=== PATIENT | male | born 1960 | race Caucasian/White ===

== ENCOUNTER 2023-01-30 09:03 | Emergency (ER) | payer BC, SELFPAY ==
--- NOTE | 2023-01-30 09:11 | ECG_ITS ---
Test Reason : HEART PALPITATIONS Blood Pressure : / mmHG Vent. Rate : 089 BPM Atrial Rate : 089 BPM P-R Int : 200 ms QRS Dur : 168 ms QT Int : 412 ms P-R-T Axes : 060 -55 027 degrees QTc Int : 501 ms Normal sinus rhythm Left axis deviation Right bundle branch block Abnormal ECG No previous ECGs available Referred By: Generic ED Physician Electronically Signed By:FATIMAH RONQUILLO
[2023-01-30 09:15] VITALS: BP 180/89; PULSE 85; RESP 18; TEMP 36.6; O2SAT 98; BMI 1220.1
--- NOTE | 2023-01-30 09:30 | ED.CHESTPAIN ---
HPI - Chest Pain General Chief Complaint: Chest Pain Stated Complaint: HBP/ heart fluttery/ no eating Time Seen by Provider: 01/30/23 09:15 Source: patient Mode of arrival: ambulatory Limitations: no limitations History of Present Illness HPI narrative: Recent had a physical and was told that his pressure is a little high. Not started on medication. Patient feeling tired. Concerned that he had a palpitation. Onset (ago): day(s) Timing of current episode: episodic Related Data Allergies Allergy/AdvReac Type Severity Reaction Status Date / Time No Known Allergies Allergy Verified 01/30/23 09:14 Review of Systems Review of Systems: Yes all other systems are reviewed and are negative Neurologic: Denies Sensory deficit (Neuro) [facility] Social History Social History Smoked in Last 30 Days: No Use of substances other than those prescribed or required for medical reasons: No Advance Directives: Yes Advance Directives Information Provided: No Advance Directives on File: No Physical Exam Vital Signs: Vital Signs: Last Vital Signs Temp 97.9 F 01/30/23 09:15 Pulse 85 01/30/23 09:15 Resp 18 01/30/23 09:15 BP 180/89 H 01/30/23 09:15 Pulse Ox 98 01/30/23 09:15 O2 Del Method Room Air 01/30/23 09:15 BMI result Body Mass Index 1220.1 Const: General: healthy appearing Nutritional Appearance: average body habitus Orientation/consciousness: oriented to person and patient oriented x3 Limitations: no limitations HEENT: Head: Yes normal to inspection Ears: external ears normal General nose exam: Normal external nose present Mouth: Normal oral and palatal mucosa present and oropharynx normal Throat: Yes posterior oropharynx normal Eyes: General: appearance normal, both eyes and all related structures Neck: Other: supple Neck: Yes normal visual inspection Chest: Chest palpation & inspection: normal inspection of the chest Resp: Auscultation: clear to auscultation bilaterally Cardio: Jugular venous distension: no JVD Rate: regular rate Rhythm: regular rhythm Heart sounds: S1 normal heart sound present and S2 normal heart sound present GI: Inspection: Yes normal to inspection Palpation (GI): Soft to palpation, nontender and No hepatosplenomegaly present Auscultation: normal bowel sounds : General: Yes no CVA tenderness Back/Spine/Pelvis: Back: no CVA tenderness Skin: General skin exam: no rashes or lesions noted Neuro: General: oriented to person and patient oriented x3 Cranial nerves: Yes CN's II-XII intact bilaterally Motor exam (neuro): 5/5 motor strength present throughout Sensory Exam: No Sensory deficit (Neuro) Extrem: General: Yes normal to inspection Psych: Appearance: grossly normal Course Reevaluation(s) Reevaluation #1: Patient with no chest pain, noticed intermittent palpitations, EKG normal troponin normal, not likely cardiac ischemia will have the patient follow up with PMD Time: 10:37 Medical Decision Making Differential Diagnosis Differential Diagnoses: The differential diagnosis associated with the presentation includes (cardiac ischemia, arrhythmia, HTN, GERD were all considered) Admission/Observation Consideration of admission/observation: Escalation of care including admission/observation considered (upon arrival patient was considered for admission) Lab Data MDM Lab Attestation statement: I reviewed the patient's lab results. (negative troponin) 01/30/23 09:48 01/30/23 09:48 Labs: Lab Results 01/30/23 01/30/23 01/30/23 Range/Units 09:48 09:48 09:48 WBC 8.2 (4.8-10.8) X10*3/uL RBC 4.32 L (4.60-5.80) X10*6/uL Hgb 14.8 (14.0-18.0) g/dl Hct 41.0 L (42.0-52.0) % MCV 94.9 (80.0-98.0) fL MCH 34.3 H (27.0-33.0) pg MCHC 36.1 H (31.0-36.0) g/dl RDW 12.2 (11.0-16.0) % Plt Count 244 (160-400) X10*3/uL MPV 9.8 (9.4-12.4) fL Immature Gran % (Auto) 0.4 (0.0-0.4) % Neut % (Auto) 80.7 H (45-73) % Lymph % (Auto) 11.5 L (20-40) % [place] % (Auto) 6.8 (2-11) % Eos % (Auto) 0.2 (0-4) % Baso % (Auto) 0.4 (0-2) % Lymph # (Auto) 1.0 L (1.2-4.9) X10*3/uL [place] # (Auto) 0.6 (0.1-1.2) X10*3/uL Eos # (Auto) 0.0 (0.0-0.4) X10*3/uL Baso # (Auto) 0.0 (0.0-0.2) X10*3/uL Abs Immat Gran (auto) 0.03 (0.00-0.03) X10*3/uL Absolute Neuts (auto) 6.6 (2.0-8.3) x10*3/uL Absolute Nucleated RBC 0.000 (0.0-0.012) X10*3/uL Nucleated RBC % (auto) 0.0 (0.0-0.2) /100WBC Sodium 135 (135-145) mmol/L Potassium 4.3 (3.3-5.1) mmol/L Chloride 106 (96-108) mmol/L Carbon Dioxide 23 (22-29) mmol/L Anion Gap 10 L (12-20) BUN 13 (9-16) mg/dL Creatinine 1.01 (0.5-1.4) mg/dL Estim Creat Clear Calc 0.5 Estimated GFR > 60 Random Glucose 109 (60-115) mg/dL Calcium 9.5 (8.4-10.2) mg/dL Troponin I High Sens < 2.7 (<3.5-35.0) ng/L Independent Interpretation I performed an independent interpretation of an: EKG (sinus 90, RBBB, no st or twave changes) Independent Historian Clinical information obtained from an independent historian. History obtained from or confirmed by: Spouse Discharge Plan Discharge Clinical Impression: Heart palpitations Patient Disposition: Home, Self-Care Instructions: Heart Palpitations (ED) Referrals: Hodan Perrin MD [Primary Care Provider] - 5 days
[2023-01-30 09:52] LABS: MANUAL DIFF FLAG NO
[2023-01-30 10:01] LABS: Basophils Percent Auto 0.4 % (0-2); Eosinophils Percent Auto 0.2 % (0-4); Hemoglobin 14.8 g/dl (14.0-18.0); Imm Gran Abs Auto 0.03 X10*3/uL (0.00-0.03); Imm Gran Pct Auto 0.4 % (0.0-0.4); Lymphocytes Percent Auto 11.5 % (20-40); Mean Corpuscular HGB Conc 36.1 g/dl (31.0-36.0); Mean Corpuscular Hemoglobin 34.3 pg (27.0-33.0); Mean Corpuscular Volume 94.9 fL (80.0-98.0); Mean Platelet Volume 9.8 fL (9.4-12.4); Monocytes Absolute Auto 0.6 X10*3/uL (0.1-1.2); Monocytes Percent Auto 6.8 % (2-11); Neutrophils Absolute Auto 6.6 x10*3/uL (2.0-8.3); Neutrophils Percent Auto 80.7 % (45-73); Platelet Count 244 X10*3/uL (160-400); Red Blood Count 4.32 X10*6/uL (4.60-5.80); Red Cell Distribution Width 12.2 % (11.0-16.0); White Blood Count 8.2 X10*3/uL (4.8-10.8)
--- NOTE | 2023-01-30 10:02 | PC.NURSE ---
resting comfortably in room. normal sinus rhythm on monitor. iv established, labs drawn and sent. no signs of distress, vital signs stable. call lopez within reach
[2023-01-30 10:05] LABS: Anion Gap 10 (12-20); Blood Urea Nitrogen 13 mg/dL (9-16); Calcium 9.5 mg/dL (8.4-10.2); Carbon Dioxide 23 mmol/L (22-29); Chloride 106 mmol/L (96-108); Creatinine Clr Calc Pharmacy 0.5; Estimated Glomerular Filt Rate > 60; Glucose Random 109 mg/dL (60-115); Potassium 4.3 mmol/L (3.3-5.1); Sodium 135 mmol/L (135-145)
[2023-01-30 10:20] LABS: Troponin-I High Sensitivity < 2.7 ng/L (<3.5-35.0)
[2023-01-30 10:54] VITALS: BP 154/93; PULSE 70; RESP 16; TEMP 36.7; O2SAT 98
== END 2023-01-30 10:56 | disposition home or self-care (01) ==
PROVIDERS: Emergency Provider Emergency Medicine; PCP Internal Medicine
DX: R00.2 Palpitations (principal); Z79.899 Other long term (current) drug therapy
CPT/HCPCS: 36415; 80048; 84484; 85025; 93005; 99284; 99285

== ENCOUNTER 2024-05-24 21:30 | Emergency (ER) | payer OTHER, SELFPAY ==
[2024-05-24] VITALS (8 sets, daily range): BP systolic 110–120; BP diastolic 60–71; PULSE 80–92; RESP 15–16; TEMP 36.7–37.1; O2SAT 96–99; BMI 28.9
--- NOTE | ~2024-05-24 | XR_ITS ---
EXAMINATION: XR CHEST CLINICAL INFORMATION: syncope COMPARISON: None available. TECHNIQUE: Frontal view of the chest was obtained. FINDINGS: No significant abnormality is noted involving the heart, lungs, mediastinum, bony thorax or soft tissues. XR/XR chest 1V IMPRESSION: Unremarkable examination. Electronically signed by: Edward Banuelos MD 05/24/2024 11:19 PM [facility]
--- NOTE | ~2024-05-24 | CT_ITS ---
EXAMINATION: CT HEAD WITHOUT CONTRAST CLINICAL INFORMATION: Syncope. Fall. COMPARISON: None available. TECHNIQUE: Contiguous axial imaging was performed from the skull base to vertex without intravenous administration of contrast. This CT examination was performed using dose optimization techniques as appropriate, variously including the following: *Automated exposure control *Adjustment of mA and/or kV according to patient size (this includes techniques or standardized protocols for targeted exams where dose is matched to indication/reason for exam; i.e. extremities or head) *Use of iterative reconstruction technique DLP: 636 mGy-cm FINDINGS: The lateral, third and fourth ventricles are normally outlined. The cortical sulci and basal cisterns are normally outlined as well. There is no acute territorial defect, hemorrhage or midline shift. The extra-axial spaces are unremarkable. Calvarium/scalp: Intact. Maxillofacial sinuses and mastoids: Clear as visualized. CT/CT head/brain wo IV con IMPRESSION: No acute intracranial pathology. Electronically signed by: Edawrd Banuelos MD 05/24/2024 11:06 PM [facility]
--- NOTE | 2024-05-24 21:52 | ECG_ITS ---
Test Reason : SYNCOPE Blood Pressure : / mmHG Vent. Rate : 081 BPM Atrial Rate : 081 BPM P-R Int : 226 ms QRS Dur : 166 ms QT Int : 428 ms P-R-T Axes : 055 -37 041 degrees QTc Int : 497 ms Sinus rhythm with 1st degree A-V block Left axis deviation Right bundle branch block Abnormal ECG When compared with ECG of 30-JAN-2023 09:12, No significant change was found Referred By: Generic ED Physician Electronically Signed By:PETER ALEJANDRA MD
--- NOTE | 2024-05-24 22:11 | ED_ITS ---
HPI - Syncope General Chief Complaint: Syncope Stated Complaint: light headed Time Seen by Provider: 05/24/24 21:44 Source: patient, family (Spouse) and EMS Mode of arrival: EMS Limitations: no limitations History of Present Illness ED Provider: DR. Acosta HPI narrative: 63-year-old male came in by ambulance for evaluation after had 2 syncopal episode witnessed by his . Patient was going to the bathroom getting ready to bed when heard a thud found the patient on the ground passing out not responding with the help of the patient was seated on the toilet when he passed out for few seconds again witnessed by the normal patient was clammy, diaphoretic. Each episode of syncope lasted for few seconds as per , patient and for sick a day before the event with stomach virus causing nausea, vomiting, and diarrhea. Patient admitted that he was not drinking enough fluids all day yesterday. Related Data Allergies Allergy/AdvReac Type Severity Reaction Status Date / Time No Known Allergies Allergy Verified 05/24/24 21:49 Review of Systems 2 Review of Systems: All other systems are reviewed and are negative Constitutional: Reports as per HPI and Reports no additional constitutional complaints Eyes: Reports as per HPI and Reports no additional eye complaints Reports system reviewed and no additional complaints, except as documented Cardiovascular: Reports as per HPI and Reports no additional cardiovascular complaints Respiratory: Reports as per HPI and Reports no additional respiratory complaints Gastrointestinal: Reports as per HPI and Reports no additional gastrointestinal complaints Genitourinary: Reports no additional female genitourinary complaints Musculoskeletal: Reports no additional musculoskeletal complaints Skin/Breast: Reports system reviewed and no additional complaints, except as docu Psychiatric: Reports no additional psychiatric complaints Endocrine: Reports no additional endocrine complaints Hematologic/Lymphatic: Reports no additional hematologic/lymphatic complaints Allergic/Immunologic: Reports no additional allergic/immunologic complaints Reports system reviewed and no additional complaints, except as documented and Reports Abnormal speech present [facility] Social History Social History Smoked in Last 30 Days: No Use of substances other than those prescribed or required for medical reasons: No Any prior treatment program specific to substance use: No Advance Directives: No Advance Directives Information Provided: No Do you have a plan to hurt others: No Plan Physical Exam 2 Vital Signs: Vital Signs: Last Vital Signs Temp 98.3 F 05/25/24 06:00 Pulse 75 05/25/24 06:00 Resp 14 05/25/24 06:00 BP 130/73 05/25/24 06:00 Pulse Ox 100 05/25/24 06:00 O2 Del Method Room Air 05/25/24 06:00 BMI result Body Mass Index 28.9 Vital signs have been reviewed and appear to be correct. Blood pressure elevated. Heart rate normal. Respiratory rate normal. Temperature normal. Oxygen saturation normal. Appearance: Alert. Oriented X3. No acute distress. Head: Normal external exam. Normocephalic. Atraumatic. No Fung signs noted. No raccoon eyes noted Eyes: PERRLA. EOMI. Conjunctiva and sclera normal. Eyelids normal. ENT: TM's Normal. Pharynx normal. Uvula midline. Moist mucous membranes. No trismus noted. No drooling noted. No muffled voice noted. Neck: Normal inspection. Neck supple. FROM. No adenopathy. Thyroid Normal. No meningeal signs. No neck mass noted. CVS: Normal heart rate and rhythm. Heart sound normal. No murmurs noted. Pulses normal throughout. Respiratory: No respiratory distress. Painless inspiration. Breath sounds normal. No wheezes/rales/rhonchi noted. Chest nontender. No accessory muscle usage noted or decreased air movement noted. Abdomen: Soft and nontender. Bowel sounds normal in all 4 quadrants. No distention noted. No organomegaly noted. No visible injury noted. Back: No CVA tenderness. Full range of motion noted. Skin: Skin warm and dry. Normal skin color. Normal skin turgor. No rashes/lesions/lacerations noted. Extremities: No lower extremity edema. Extremities exhibit normal range of motion. Extremities nontender. Neuro: Oriented X 3. Cranial nerve exam: II-XII are grossly intact No motor deficit. No sensory deficit. Reflexes normal. Course Reevaluation(s) Reevaluation #1: Hypovolemia and orthostatic syncope secondary to acute gastroenteritis with dehydration. Patient received IV hydration in the emergency department and subjectively patient feels much better able to ambulate unsteady gait in the emergency department no more nausea or vomiting or diarrhea. Time: 06:37 Medications Administered Discontinued Medications Generic Name Dose Route Start Last Admin Trade Name Freq PRN Reason Stop Dose Admin Sodium Chloride 1,000 mls @ 999 mls/hr 05/24/24 22:18 05/25/24 02:05 Ns IV 05/24/24 23:18 Infused .Q1H1M ONE Infusion Sodium Chloride 1,000 mls @ 999 mls/hr 05/25/24 00:05 05/25/24 05:16 Ns IV 05/25/24 01:05 Infused .Q1H1M ONE Infusion Medical Decision Making Differential Diagnosis Differential Diagnoses: The differential diagnosis associated with the presentation includes (ACS, dysrhythmia, dehydration, hypovolemia, electrolyte derangement, severe anemia.) Admission/Observation Consideration of admission/observation: Escalation of care including admission/observation considered Lab Data MDM Lab Attestation statement: I reviewed the patient's lab results. 05/24/24 22:34 05/24/24 22:34 Labs: Lab Results 05/24/24 05/25/24 Range/Units 22:34 02:06 WBC 6.5 (4.8-10.8) X10*3/uL RBC 3.89 L (4.60-5.80) X10*6/uL Hgb 13.2 L (14.0-18.0) g/dl Hct 37.1 L (42.0-52.0) % MCV 95.4 (80.0-98.0) fL MCH 33.9 H (27.0-33.0) pg MCHC 35.6 (31.0-36.0) g/dl RDW 12.3 (11.0-16.0) % Plt Count 206 (160-400) X10*3/uL MPV 9.0 L (9.4-12.4) fL Immature Gran % (Auto) 0.2 (0.0-0.4) % Neut % (Auto) 81.4 H (45-73) % Lymph % (Auto) 7.6 L (20-40) % [place] % (Auto) 10.2 (2-11) % Eos % (Auto) 0.3 (0-4) % Baso % (Auto) 0.3 (0-2) % Lymph # (Auto) 0.5 L (1.2-4.9) X10*3/uL [place] # (Auto) 0.7 (0.1-1.2) X10*3/uL Eos # (Auto) 0.0 (0.0-0.4) X10*3/uL Baso # (Auto) 0.0 (0.0-0.2) X10*3/uL Abs Immat Gran (auto) 0.01 (0.00-0.03) X10*3/uL Absolute Neuts (auto) 5.3 (2.0-8.3) x10*3/uL Absolute Nucleated RBC 0.000 (0.0-0.012) X10*3/uL Nucleated RBC % (auto) 0.0 (0.0-0.2) /100WBC Sodium 135 (135-145) mmol/L Potassium 4.2 (3.3-5.1) mmol/L Chloride 106 (96-108) mmol/L Carbon Dioxide 24 (22-29) mmol/L Anion Gap 9 L (12-20) BUN 18 H (9-16) mg/dL Creatinine 0.85 (0.5-1.4) mg/dL Estim Creat Clear Calc 96.7 Estimated GFR > 60 Random Glucose 122 H (60-115) mg/dL Calcium 8.4 D (8.4-10.2) mg/dL Troponin I High Sens < 2.7 (<3.5-35.0) ng/L Urine Color Dark Yellow Urine Appearance Clear Urine pH 6.0 (5.0-9.0) Ur Specific [place] >= 1.030 H (1.005-1.025) Urine Protein 30 (1+) H (Neg-Trace) mg/dL Urine Glucose (UA) Negative (Negative) mg/dL Urine Ketones 15 (Negative) mg/dL Urine Blood Negative (Negative) Urine Nitrite Negative (Negative) Ur Leukocyte Esterase Negative (Negative) Urine RBC 0-2 (0-2) /HPF Urine WBC 0-5 (0-5) /HPF Ur Squamous Epith Cells 0-2 (0-2) /HPF Urine Bacteria None Seen (None Seen) Hyaline Casts 0-2 (0-2) /LPF Independent Interpretation I performed an independent interpretation of an: Plain X-Ray (Chest: No acute intrathoracic pathology.) and CT Scan (Head: No acute intracranial pathology.) Radiology Impression Discussion of test interpretation with radiology: I have reviewed the radiologist's reading. Discharge Plan Discharge Clinical Impression: Syncope due to orthostatic hypotension Patient Disposition: Home, Self-Care Instructions: Syncope (ED) Referrals: Hodan Perrin MD [Primary Care Provider] - Print Language: Uzbek
[2024-05-24] MEDS: 0.9 % Sodium Chloride 1,000 ML 999 ML IV (22:37)
[2024-05-24 22:38] LABS: MANUAL DIFF FLAG NO
[2024-05-24 22:40] LABS: Basophils Percent Auto 0.3 % (0-2); Eosinophils Percent Auto 0.3 % (0-4); Hematocrit 37.1 % (42.0-52.0); Hemoglobin 13.2 g/dl (14.0-18.0); Imm Gran Abs Auto 0.01 X10*3/uL (0.00-0.03); Imm Gran Pct Auto 0.2 % (0.0-0.4); Lymphocytes Absolute Auto 0.5 X10*3/uL (1.2-4.9); Lymphocytes Percent Auto 7.6 % (20-40); Mean Corpuscular HGB Conc 35.6 g/dl (31.0-36.0); Mean Corpuscular Hemoglobin 33.9 pg (27.0-33.0); Mean Corpuscular Volume 95.4 fL (80.0-98.0); Monocytes Absolute Auto 0.7 X10*3/uL (0.1-1.2); Monocytes Percent Auto 10.2 % (2-11); Neutrophils Absolute Auto 5.3 x10*3/uL (2.0-8.3); Neutrophils Percent Auto 81.4 % (45-73); Platelet Count 206 X10*3/uL (160-400); Red Blood Count 3.89 X10*6/uL (4.60-5.80); Red Cell Distribution Width 12.3 % (11.0-16.0); White Blood Count 6.5 X10*3/uL (4.8-10.8)
[2024-05-24 22:52] LABS: Anion Gap 9 (12-20); Blood Urea Nitrogen 18 mg/dL (9-16); Calcium 8.4 mg/dL (8.4-10.2); Carbon Dioxide 24 mmol/L (22-29); Chloride 106 mmol/L (96-108); Creatinine Clr Calc Pharmacy 96.7; Estimated Glomerular Filt Rate > 60; Glucose Random 122 mg/dL (60-115); Potassium 4.2 mmol/L (3.3-5.1); Sodium 135 mmol/L (135-145)
[2024-05-24 23:01] LABS: Troponin-I High Sensitivity < 2.7 ng/L (<3.5-35.0)
[2024-05-25 02:02] VITALS: BP 117/64; PULSE 74; RESP 15; TEMP 36.9; O2SAT 98
[2024-05-25] MEDS: 0.9 % Sodium Chloride 1,000 ML 999 ML IV (02:05)
[2024-05-25 02:12] LABS: Appearance Urine Clear; Color Urine Dark Yellow; Glucose Urine UA Negative (Negative); Leukocyte Esterase Urine Negative (Negative); Nitrite Urine Negative (Negative); Specific Gravity - Urine >= 1.030 (1.005-1.025); UMIC TRIGGER UACC YES; Urine Blood Negative (Negative); Urine Ketones 15 mg/dL (Negative); Urine Protein 30 (1+) mg/dL (Neg-Trace)
[2024-05-25 02:19] LABS: Bacteria Urine None Seen (None Seen); Hyaline Casts Urine 0-2 /LPF (0-2); RBC Urine 0-2 /HPF (0-2); Squamous Epithelial Cell Urine 0-2 /HPF (0-2); WBC Urine 0-5 /HPF (0-5)
[2024-05-25 04:19] VITALS: BP 119/69; PULSE 78; RESP 15; TEMP 36.8; O2SAT 99
[2024-05-25 06:00] VITALS: BP 130/73; PULSE 75; RESP 14; TEMP 36.8; O2SAT 100
[2024-05-25 06:47] VITALS: BP 130/73; PULSE 75; RESP 14; TEMP 36.8; O2SAT 100
== END 2024-05-25 06:48 | disposition home or self-care (01) ==
PROVIDERS: Emergency Provider Emergency Medicine; PCP Internal Medicine
DX: K52.9 Noninfective gastroenteritis and colitis, unspecified (principal); E86.0 Dehydration; I95.1 Orthostatic hypotension; E86.1 Hypovolemia; R42 Dizziness and giddiness
CPT/HCPCS: 36415; 70450; 71045; 80048; 81001; 84484; 85025; 93005; 96360; 96361; 99285

== ENCOUNTER → 2024-05-24 21:52 | Outpatient (BNV) | payer OTHER, SELFPAY | PROVIDERS: Emergency Provider Emergency Medicine; PCP Internal Medicine; Visit Provider Internal Medicine Cardiovascular Disease | DX: R94.31 Abnormal electrocardiogram [ECG] [EKG] (principal) | CPT/HCPCS: 93010 ==

== ENCOUNTER 2025-05-06 09:10 | Outpatient (AMB) | payer MEDICARE, SELFPAY ==
[2025-05-06 09:24] VITALS: BP 128/70; PULSE 86; TEMP 37; O2SAT 99; BMI 29.8
--- NOTE | 2025-05-06 09:24 | AM.OFFWIN_ITS ---
Intake Vital Signs 05/06/25 09:24 Height 5 ft 9 in Weight 202 lb BMI 29.8 BP 128/70 Blood Pressure Location Lt brachial Position Sitting Pulse 86 Pulse Source Pulse Oximeter Temp 98.6 F Temp Source Oral Pulse Oximetry (%) 99 Oxygen Delivery Method Room Air Intake Visit Reasons: EP cough cold for a week Intake Note: pt presents with chest congestion with productive coughing producing dark phlegm, sinus congestion with bloody mucus, pain to left side of face including ear Allergies No Known Allergies Allergy (Verified 05/06/25 09:26) Medication List - Last Reconciled 05/06/25 by Ladan Nguyen NP B-complex with vitamin C 1 cap PO DAILY cholecalciferol (vitamin D3) 50 mcg PO DAILY clindamycin phosphate 1% topical ezetimibe 10 mg PO DAILY latanoprost 0.005% drps ophthalmic (eye) lisinopril 40 mg PO DAILY omeprazole 20 mg PO DAILY simvastatin 40 mg PO BEDTIME tretinoin 0.01% topical Do you need a note to return to daycare/school/sports/work: No HPI HPI Comments History of Present Illness Details 64-year-old male presents to [facility] with >1 week of chest congestion accompanied by productive cough with dark phlegm. Reports sinus congestion with intermittent bloody mucus. Also endorses left-sided otalgia. He has been using home remedies without symptomatic relief. Denies fever, chills, nausea, vomiting. No recent sick contacts reported. [facility] Medical History (Updated 05/06/25 @ 09:44 by Ladan Nguyen NP) Upper respiratory infection Review of Systems Const All systems reviewed & are unremarkable except as noted in HPI and below Physical Exam Vital Signs: Last Vital Signs Temp 98.6 F 05/06/25 09:24 Pulse 86 05/06/25 09:24 BP 128/70 05/06/25 09:24 Pulse Ox 99 05/06/25 09:24 Oxygen Delivery Method Room Air 05/06/25 09:24 BMI result Body Mass Index 29.8 HEENT Head: Yes normocephalic Ears: external ears normal and TM abnormal bulging bilateral and with fluid behind the TM bilateral General nose exam: No nasal discharge present and Abnormal mucous membranes and turbinates present boggy Face and sinus: Yes sinuses nontender Mouth: moist mucous membranes Throat: Yes uvula midline Resp Effort & Inspection: normal respiratory effort Auscultation: clear to auscultation bilaterally Cardio Heart sounds: S1 normal heart sound present and S2 normal heart sound present Assessment & Plan Assessment & Plan (1) Upper respiratory infection: Code(s): J06.9 - Acute upper respiratory infection, unspecified Plan: Acute upper respiratory infection ? likely viral vs early bacterial sinusitis given >1 week duration, dark phlegm, and bloody nasal mucus. Left Otalgia ? Fluid Behind ears plus referred pain from sinus congestion. Recommend OTC symptomatic relief: Guaifenesin, Flonase nasal spray BID, saline nasal rinses and Claritin BID. Encourage hydration, warm steam inhalation. Avoid forceful nose blowing to reduce nasal bleeding. Red-flag return precautions: fever, worsening ear pain, SOB, chest pain, hemoptysis, persistent symptoms beyond 7?10 more days. Medications: New loratadine 10 mg PO BID 30 tabs 0RF J06.9 - Acute upper respiratory infection, unspecified Coding Level of Care Code Est Pt Level 4 (65409) Diagnoses Upper respiratory infection J06.9 Time Spent (min) 20
== END 2025-05-06 09:51 | disposition home or self-care (01) ==
PROVIDERS: PCP Internal Medicine; Visit Provider Nurse Practitioner Family
DX: J06.9 Acute upper respiratory infection, unspecified (principal)

== ENCOUNTER → 2025-05-06 09:10 | Outpatient (BNVA) | payer MEDICARE, SELFPAY | PROVIDERS: PCP Internal Medicine; Visit Provider Nurse Practitioner Family | DX: H92.02 Otalgia, left ear (principal); J06.9 Acute upper respiratory infection, unspecified | CPT/HCPCS: 99212 ==